=== PATIENT | female | born 1995 | race Caucasian/White ===

== ENCOUNTER 2019-04-18 07:32 | Emergency (ER) | payer BC ==
[~2019-04-18] VITALS: Ht 162.6 cm; Wt 74.4 kg
[2019-04-18 10:20] VITALS: BP 97/58
== END 2019-04-18 10:29 | disposition home or self-care (01) ==
LOC: ED 10:23
DX: O20.0 Threatened abortion (principal); Z3A.08 8 weeks gestation of pregnancy; R11.0 Nausea; R42 Dizziness and giddiness; R10.10 Upper abdominal pain, unspecified
CPT/HCPCS: 36415; 76801; 80053; 81001; 84702; 85025; 93005; 99284; Q0169

== ENCOUNTER 2019-04-24 11:09 | Emergency (ER) | payer BC ==
[~2019-04-24] VITALS: Ht 162.6 cm; Wt 72.0 kg
[2019-04-24 13:20] VITALS: BP 114/76
== END 2019-04-24 14:16 | disposition home or self-care (01) ==
LOC: ED 13:56
DX: O21.1 Hyperemesis gravidarum with metabolic disturbance (principal); Z3A.21 21 weeks gestation of pregnancy; E86.0 Dehydration; Z88.1 Allergy status to other antibiotic agents
CPT/HCPCS: 36415; 80053; 81001; 84702; 85025; 87077; 87086; 87186; 99283; Q0162

== ENCOUNTER 2019-07-30 08:03 | Outpatient (CLI) | payer BC, MEDICAID ==
[2019-07-30] MEDS ORDERED: ACET-1600 PO (09:37)
[2019-07-30] MEDS ORDERED: DOXY1TAB3 PO (09:38)
[2019-07-30] MEDS ORDERED: PREN1TAB10 PO (09:38)
[2019-07-30 09:42] LABS: MICROSCOPIC AUTO
[2019-07-30 09:57] LABS: AMPHETAMINE SCREEN, URINE Negative (Negative); BARBITURATE SCREEN, URINE Negative (Negative); BENZODIAZEPINE SCREEN, URINE Negative (Negative); CANNABINOID SCREEN, URINE Positive (Negative); COCAINE SCREEN, URINE Negative (Negative); METHADONE SCREEN, URINE Negative (Negative); OPIATE SCREEN, URINE Negative (Negative)
== END 2019-07-30 09:57 | disposition home or self-care (01) ==
LOC: LDOP 08:03
PROVIDERS: ATTEND Obstetrics & Gynecology
DX: O26.892 Other specified pregnancy related conditions, second trimester (principal); M54.9 Dorsalgia, unspecified; Z3A.21 21 weeks gestation of pregnancy
CPT/HCPCS: 80307; 81001; 87086; 99201; G0463

== ENCOUNTER 2019-07-30 10:05 | Emergency (ER) | payer BC, MEDICAID ==
[~2019-07-30] VITALS: Ht 162.6 cm; Wt 78.0 kg
[~2019-07-30 10:05] MED LIST: ACET-1600 PO; DOXY1TAB3 PO; PREN1TAB10 PO
[2019-07-30] MEDS ORDERED: OXYcodone/APAP 5/325MG TABLET PO ONE (11:00)
[2019-07-30] MEDS ORDERED: OXYcodone/APAP 5/325MG TABLET ONE (11:26)
--- NOTE | 2019-07-30 11:35 | NUR ---
OFF FLOOR TO MRI
--- NOTE | 2019-07-30 13:10 | NUR ---
AWAITING RE-EVAL. STATES SHE FEELS NAUSEATED AND LIGHTHEADED SINCE GETTING PAIN MEDICATION
[2019-07-30 13:50] VITALS: BP 107/71
== END 2019-07-30 13:52 | disposition home or self-care (01) ==
LOC: ED 13:02
DX: O9A.212 Injury, poisoning and certain other consequences of external causes complicating pregnancy, second trimester (principal); G89.11 Acute pain due to trauma; M54.5 Low back pain; Z3A.21 21 weeks gestation of pregnancy; W01.0XXA Fall on same level from slipping, tripping and stumbling without subsequent striking against object, initial encounter; Y93.89 Activity, other specified; Y92.89 Other specified places as the place of occurrence of the external cause; Y99.8 Other external cause status
CPT/HCPCS: 72148; 99284

== ENCOUNTER 2019-10-01 08:34 | Outpatient (CLI) | payer MEDICAID ==
[~2019-10-01] VITALS: Ht 162.6 cm; Wt 87.3 kg
[2019-10-01 08:47] VITALS: BP 109/59
[2019-10-01 09:12] LABS: MICROSCOPIC AUTO
[2019-10-01 09:53] LABS: AMPHETAMINE SCREEN, URINE Negative (Negative); BENZODIAZEPINE SCREEN, URINE Negative (Negative); CANNABINOID SCREEN, URINE Positive (Negative); COCAINE SCREEN, URINE Negative (Negative); METHADONE SCREEN, URINE Negative (Negative); OPIATE SCREEN, URINE Negative (Negative)
[2019-10-01 09:54] LABS: BARBITURATE SCREEN, URINE Negative (Negative)
== END 2019-10-01 10:26 | disposition home or self-care (01) ==
LOC: LDOP 08:34
PROVIDERS: ATTEND Obstetrics & Gynecology
DX: O42.90 Premature rupture of membranes, unspecified as to length of time between rupture and onset of labor, unspecified weeks of gestation (principal); Z3A.30 30 weeks gestation of pregnancy
CPT/HCPCS: 59025; 80307; 81001; 84112; 87086; 99211; G0463

== ENCOUNTER 2019-11-15 17:10 | Outpatient (CLI) | payer MEDICAID ==
[~2019-11-15] VITALS: Ht 162.6 cm; Wt 93.1 kg
[2019-11-15 17:59] VITALS: BP 110/62
[2019-11-15 18:07] LABS: MICROSCOPIC INDICATED
[2019-11-15] MEDS ORDERED: OMEP20TA62 PO (18:09)
[2019-11-15 18:16] LABS: AMPHETAMINE SCREEN, URINE Negative (Negative); BARBITURATE SCREEN, URINE Negative (Negative); BENZODIAZEPINE SCREEN, URINE Negative (Negative); CANNABINOID SCREEN, URINE Negative (Negative); COCAINE SCREEN, URINE Negative (Negative); METHADONE SCREEN, URINE Negative (Negative); OPIATE SCREEN, URINE Negative (Negative)
== END 2019-11-15 19:17 | disposition home or self-care (01) ==
LOC: LDOP 17:10
PROVIDERS: ATTEND Obstetrics & Gynecology
DX: O42.913 Preterm premature rupture of membranes, unspecified as to length of time between rupture and onset of labor, third trimester (principal); Z3A.36 36 weeks gestation of pregnancy
CPT/HCPCS: 59025; 80307; 81001; 84112; 87086; 99211; G0463

== ENCOUNTER 2019-11-20 12:16 | Outpatient (CLI) | payer MEDICAID ==
[~2019-11-20] VITALS: Ht 162.6 cm; Wt 95.4 kg
[~2019-11-20 12:16] MED LIST changes: +OMEP20TA62 PO
[2019-11-20 12:57] VITALS: BP 117/73
[2019-11-20 13:25] LABS: METHADONE SCREEN, URINE Negative (Negative)
[2019-11-20 13:27] LABS: AMPHETAMINE SCREEN, URINE Negative (Negative); BARBITURATE SCREEN, URINE Negative (Negative); BENZODIAZEPINE SCREEN, URINE Negative (Negative); CANNABINOID SCREEN, URINE Negative (Negative); COCAINE SCREEN, URINE Negative (Negative); OPIATE SCREEN, URINE Negative (Negative)
[2019-11-20 13:36] LABS: MICROSCOPIC INDICATED
[2019-11-20 13:54] LABS: CULTURE INDICATED? YES
== END 2019-11-20 15:11 | disposition home or self-care (01) ==
LOC: LDOP 12:16
PROVIDERS: ATTEND Obstetrics & Gynecology
DX: O42.913 Preterm premature rupture of membranes, unspecified as to length of time between rupture and onset of labor, third trimester (principal); Z3A.00 Weeks of gestation of pregnancy not specified
CPT/HCPCS: 59025; 80307; 81001; 87086; 99211; G0463

== ENCOUNTER 2019-12-05 09:32 | Inpatient (IN) | payer MEDICAID ==
[~2019-12-05] VITALS: Ht 162.6 cm; Wt 95.0 kg
[2019-12-05] MEDS ORDERED: OXYTOCIN 30U/ 0.9% NaCL 500ML 500 ML IV ONE (10:26)
[2019-12-05] MEDS ORDERED: D5%-LACTATED RINGERS 1,000 ML IV SCH (10:26)
[2019-12-05] MEDS ORDERED: OXYTOCIN 30U/ 0.9% NaCL 500ML 500 ML IV PRN (10:26)
[2019-12-05] MEDS ORDERED: LACTATED RINGERS 1,000 ML IV SCH ×2 (10:26→16:43)
[2019-12-05] MEDS ORDERED: TERBUTALINE 1 MG/ML, 1ML IVPush PRN (10:30)
[2019-12-05] MEDS ORDERED: TERBUTALINE 1 MG/ML, 1ML SQ PRN (10:30)
[2019-12-05] MEDS ORDERED: CALCIUM CARBONATE 500 MG TAB.CHEW PO PRN (10:30)
[2019-12-05] MEDS ORDERED: FENTANYL PF 100 MCG/2ML IV PRN (10:30)
[2019-12-05] MEDS ORDERED: ONDANSETRON 2MG/ML, 2ML IVPush PRN (10:30)
[2019-12-05 10:41] VITALS: BP 117/66
[2019-12-05] MEDS ORDERED: OXYTOCIN 30U/ 0.9% NaCL 500ML 500 ML ONE ×2 (10:42→22:45)
[2019-12-05] MEDS ORDERED: MISOPROSTOL 200 MCG TABLET ONE (10:42)
[2019-12-05] MEDS ORDERED: NEWBORN KIT ONE (10:42)
[2019-12-05] MEDS ORDERED: LIDOCAINE 1%, 20ML ONE (10:42)
[2019-12-05 10:51] LABS: BASOPHILS # (AUTO) 0.03 x10^3/uL (0-0.1); BASOPHILS % (AUTO) 0 % (0-1); EOSINOPHILS # (AUTO) 0.13 x10^3/uL (0-0.4); EOSINOPHILS % (AUTO) 1 % (1-7); LYMPHOCYTES # (AUTO) 1.42 x10^3/uL (1-3.4); LYMPHOCYTES % (AUTO) 13 % (22-44); MD NO; MEAN CORPUSCULAR HEMOGLOBIN 30.6 pg (27.0-34.8); MEAN CORPUSCULAR HGB CONC 33.7 g/dL (32.4-35.8); MEAN CORPUSCULAR VOLUME 90.7 fL (80-100); MEAN PLATELET VOLUME 9.2 fL (7.4-10.4); MONOCYTES # (AUTO) 0.83 x10^3/uL (0.2-0.8); MONOCYTES % (AUTO) 8 % (2-9); NEUTROPHILS # (AUTO) 8.25 x10^3/uL (1.8-6.8); NEUTROPHILS % (AUTO) 77 % (42-75); PLATELET COUNT 235 x10^3/uL (130-400); RED BLOOD COUNT 4.29 x10^6/uL (3.82-5.3); RED CELL DISTRIBUTION WIDTH 13.3 % (9.6-15.2)
[2019-12-05 11:28] LABS: AMPHETAMINE SCREEN, URINE Negative (Negative); BARBITURATE SCREEN, URINE Negative (Negative); BENZODIAZEPINE SCREEN, URINE Negative (Negative); CANNABINOID SCREEN, URINE Positive (Negative); COCAINE SCREEN, URINE Negative (Negative); METHADONE SCREEN, URINE Negative (Negative); OPIATE SCREEN, URINE Negative (Negative)
[2019-12-05] MEDS ORDERED: FENTANYL PF 100 MCG/2ML ONE ×2 (14:10→15:31)
[2019-12-05] MEDS: FENTANYL PF 100 MCG/2ML IVPush PRN ×2 (14:13→15:35)
[2019-12-05] MEDS ORDERED: FENTANYL PF 500 MCG, BUPIVACAINE/PF 0.5%, 30ML 62.5 ML in SODIUM CHLORIDE 0.9% 177.5 ML IV SCH (16:00)
[2019-12-05] MEDS ORDERED: LACTATED RINGERS 1,000 ML IVBOLUS PRN ×2 (16:00→17:00)
[2019-12-05] MEDS ORDERED: FENTANYL/BUPIV./NS/PF 250 ML EPIDCONT SCH (16:43)
[2019-12-05] MEDS ORDERED: EPHEDRINE 50 MG/ML, 1ML IVPush PRN (17:00)
[2019-12-05] MEDS ORDERED: NALOXONE 0.4 MG/ML, 1ML IVPush PRN (17:00)
[2019-12-05] MEDS ORDERED: ONDANSETRON 2MG/ML, 2ML ONE (17:22)
[2019-12-05 19:25] VITALS: BP 112/62
[2019-12-05] MEDS ORDERED: IBUPROFEN 600 MG TABLET ONE (22:46)
[2019-12-05] MEDS ORDERED: OXYTOCIN 30U/ 0.9% NaCL 500ML 500 ML IV SCH (22:49)
[2019-12-05] MEDS: IBUPROFEN 600 MG TABLET PO PRN (22:53)
[2019-12-05] MEDS ORDERED: MAGNESIUM HYDROXIDE 8%, 30ML UDC PO PRN (23:00)
[2019-12-05] MEDS ORDERED: MISOPROSTOL 200 MCG TABLET PR PRN (23:00)
[2019-12-05] MEDS ORDERED: ONDANSETRON 2MG/ML, 2ML IV PRN (23:00)
[2019-12-05] MEDS ORDERED: ACETAMINOPHEN 325 MG TABLET PO PRN ×3 (23:00)
[2019-12-05] MEDS ORDERED: METOCLOPRAMIDE 5 MG/ML, 2ML IV PRN (23:00)
[2019-12-05] MEDS ORDERED: IBUPROFEN 800 MG TABLET PO PRN (23:00)
[2019-12-05] MEDS ORDERED: MISOPROSTOL 200 MCG TABLET PO PRN (23:00)
[2019-12-05] MEDS ORDERED: SIMETHICONE 80 MG CHEW TAB PO PRN (23:00)
[2019-12-05 23:30] VITALS: BP 120/65
[2019-12-06 03:15] VITALS: BP 125/76
[2019-12-06] MEDS: IBUPROFEN 600 MG TABLET PO PRN ×3 (05:42→18:45)
[2019-12-06 06:43] LABS: MEAN CORPUSCULAR HEMOGLOBIN 30.7 pg (27.0-34.8); MEAN CORPUSCULAR HGB CONC 33.8 g/dL (32.4-35.8); MEAN CORPUSCULAR VOLUME 90.8 fL (80-100); MEAN PLATELET VOLUME 9.4 fL (7.4-10.4); PLATELET COUNT 226 x10^3/uL (130-400); RED BLOOD COUNT 4.39 x10^6/uL (3.82-5.3); RED CELL DISTRIBUTION WIDTH 13.3 % (9.6-15.2)
[2019-12-06 06:57] LABS: BASOPHILS # (AUTO) 0.08 x10^3/uL (0-0.1); BASOPHILS % (AUTO) 1 % (0-1); EOSINOPHILS # (AUTO) 0.11 x10^3/uL (0-0.4); EOSINOPHILS % (AUTO) 1 % (1-7); LYMPHOCYTES % (AUTO) 11 % (22-44); MD SCAN; MONOCYTES # (AUTO) 1.04 x10^3/uL (0.2-0.8); MONOCYTES % (AUTO) 7 % (2-9); NEUTROPHILS # (AUTO) 12.89 x10^3/uL (1.8-6.8); NEUTROPHILS % (AUTO) 81 % (42-75)
[2019-12-06 07:30] VITALS: BP 114/74
[2019-12-06] MEDS: PRENATAL VIT/IRON/FA 1 EACH TABLET PO SCH (08:58)
[2019-12-06] MEDS: DOCUSATE 100 MG CAPSULE PO PRN ×2 (08:58→18:45)
[2019-12-06 12:31] VITALS: BP 133/84
[2019-12-06 17:00] VITALS: BP 107/71
[2019-12-06 20:00] VITALS: BP 101/68
[2019-12-06] MEDS: OXYcodone/APAP 5/325MG TABLET PO PRN (21:15)
[2019-12-07] MEDS: IBUPROFEN 600 MG TABLET PO PRN ×2 (05:08→12:03)
[2019-12-07 07:30] VITALS: BP 124/75
[2019-12-07] MEDS: DOCUSATE 100 MG CAPSULE PO PRN (07:35)
[2019-12-07] MEDS: PRENATAL VIT/IRON/FA 1 EACH TABLET PO SCH (07:36)
[2019-12-07] MEDS: OXYcodone/APAP 5/325MG TABLET PO PRN ×2 (07:36→12:03)
[2019-12-07] MEDS ORDERED: IBUP-1223 PO (11:14)
== END 2019-12-07 12:15 | disposition home or self-care (01) | DRG 807 ==
LOC: LDIP 09:32 → 2NW 23:12
PROVIDERS: ADMIT Obstetrics & Gynecology; ATTEND Obstetrics & Gynecology
PROC: 10E0XZZ Delivery of Products of Conception, External Approach (ICD-10-PCS; principal; 2019-12-06)
PROC: 0KQM0ZZ Repair Perineum Muscle, Open Approach (ICD-10-PCS; 2019-12-06)
PROC: 10907ZC Drainage of Amniotic Fluid, Therapeutic from Products of Conception, Via Natural or Artificial Opening (ICD-10-PCS; 2019-12-06)
DX: O69.81X0 Labor and delivery complicated by cord around neck, without compression, not applicable or unspecified (principal); Z37.0 Single live birth; O62.0 Primary inadequate contractions; J45.909 Unspecified asthma, uncomplicated; O70.1 Second degree perineal laceration during delivery; O99.52 Diseases of the respiratory system complicating childbirth; Z3A.39 39 weeks gestation of pregnancy; Z88.2 Allergy status to sulfonamides; Z91.041 Radiographic dye allergy status
CPT/HCPCS: 36415; J3490; S0020; 80307; 85025; 86592; 86850; 86900; G0378; J2405; J3010; J2590; J7050; J7120

== ENCOUNTER 2020-11-19 14:04 | Emergency (ER) | payer MEDICAID ==
[~2020-11-19] VITALS: Ht 162.6 cm; Wt 96.8 kg
[~2020-11-19 14:04] MED LIST changes: +IBUP-1223 PO
--- NOTE | 2020-11-19 14:54 | NUR ---
S/S for last three days: sweating, cough, wheezing, swollen sinuses, runny nose, yellow from cough and sneezing, SOB, rash on left side, vomitting x2.
--- NOTE | 2020-11-19 15:25 | NUR ---
Pt to XR.
[2020-11-19] MEDS ORDERED: AZITHROMYCIN 500 MG TABLET PO ONE (16:00)
[2020-11-19] MEDS ORDERED: CEFTRIAXONE 250 MG IM ONE (16:00)
--- NOTE | 2020-11-19 16:31 | NUR ---
UA collected and tubed to lab.
[2020-11-19 17:16] VITALS: BP 133/68
--- NOTE | 2020-11-19 17:16 | NUR ---
Pt agrees with and understands discharge plan and instructions.
== END 2020-11-19 17:32 | disposition home or self-care (01) ==
LOC: ED 17:12
DX: B34.9 Viral infection, unspecified (principal); R05 Cough; J02.9 Acute pharyngitis, unspecified; R09.89 Other specified symptoms and signs involving the circulatory and respiratory systems; R07.89 Other chest pain; J45.909 Unspecified asthma, uncomplicated; Z88.2 Allergy status to sulfonamides
CPT/HCPCS: 71046; 99283